=== PATIENT | female | born 1965 | race Two or more races ===

== ENCOUNTER 2023-08-09 18:46 | Emergency (ER) | payer SELFPAY ==
[~2023-08-09] VITALS: Ht 154.9 cm; Wt 58.2 kg
[2023-08-09 18:52] VITALS: BP 144/74; PULSE 91; RESP 16; TEMP 98.3
== END 2023-08-09 19:46 | disposition left against medical advice (07) ==
LOC: EMS 18:52
DX: R51.9 Headache, unspecified (principal); Z53.21 Procedure and treatment not carried out due to patient leaving prior to being seen by health care provider